=== PATIENT | male | born 1980 | race Hispanic/Latino ===

== ENCOUNTER 2017-12-25 17:05 | Emergency (ER) | payer OTHER ==
[2017-12-25 17:15] VITALS: RESP 16
[2017-12-25] MEDS ORDERED: Sodium Chloride 0.9% 1,000 ML IV STA (17:33)
--- NOTE | 2017-12-25 17:38 | ED PDOC ---
HPI: Male Pain Time Seen by Provider: 12/25/17 17:19 Chief Complaint (Nursing): Male Genitourinary Chief Complaint (Provider): Bloody urine History Per: Patient History/Exam Limitations: no limitations Onset/Duration Of Symptoms: Days (1) Current Symptoms Are (Timing): Still Present Additional Complaint(s): Pt. with bloody urine since last night with flank R pain and suprapubic pain. Pt. has had freq of urination for 8 months. Seen by pcp and no other tx at this time for it. No numbness, tingles, other abd pain, weakness, fever, diarrhea, headaches, nausea, vomit. Has von willebrand dz and up to age of 16 was getting bloody urine and had a lot of testing done for it. Pt. was not put on meds or any further tx. States no bleedings since then. Past Medical History Reviewed: Nursing Documentation, Vital Signs Vital Signs: Last Vital Signs Temp 97.6 F 12/25/17 17:13 Pulse 93 H 12/25/17 17:13 Resp 16 12/25/17 17:13 BP 119/80 12/25/17 17:13 Pulse Ox 99 12/25/17 17:13 - Medical History PMH: Kidney Stones Other PMH: von willebrand dz - Surgical History Surgical History: No Surg Hx - Family History Family History: States: Unknown Family Hx - Social History Current smoker - smoking cessation education provided: No Alcohol: None Drugs: Denies - Immunization History Hx Tetanus Toxoid Vaccination: No Hx Influenza Vaccination: No Hx Pneumococcal Vaccination: No - Home Medications Home Medications: Ambulatory Orders Medication Instructions Recorded Ciprofloxacin HCl [Cipro] 500 mg PO BID 5 Days tab 12/25/17 Tamsulosin [Flomax] 0.4 mg PO DAILY PRN #6 cap 12/25/17 - Allergies Allergies/Adverse Reactions: Allergies Allergy/AdvReac Type Severity Reaction Status Date / Time No Known Allergies Allergy Verified 12/25/17 17:13 Review of Systems ROS Statement: Except As Marked, All Systems Reviewed And Found Negative Gastrointestinal: Positive for: Abdominal Pain (suprapubic) Genitourinary Male: Positive for: Frequency, Hematuria Physical Exam - Reviewed Nursing Documentation Reviewed: Yes Vital Signs Reviewed: Yes - Physical Exam Appears: Positive for: Non-toxic, No Acute Distress Head Exam: Positive for: ATRAUMATIC, NORMAL INSPECTION, NORMOCEPHALIC Skin: Positive for: Normal Color, Warm, DRY Eye Exam: Positive for: EOMI, Normal appearance, PERRL ENT: Positive for: Normal ENT Inspection Neck: Positive for: Normal, Painless ROM Cardiovascular/Chest: Positive for: Regular Rate, Rhythm Respiratory: Positive for: CNT, Normal Breath Sounds Gastrointestinal/Abdominal: Positive for: Bowel Sounds, Soft, Tenderness ( suprapubic) Back: Positive for: R CVA Tenderness. Negative for: L CVA Tenderness Extremity: Positive for: Normal ROM. Negative for: Tenderness Neurologic/Psych: Positive for: Alert, Oriented - Laboratory Results Result Diagrams: 12/25/17 17:40 12/25/17 17:40 Interpretation Of Abn Labs: no acute Urine dip results: Positive for: Blood - ECG O2 Sat by Pulse Oximetry: 99 Pulse Ox Interpretation: Normal - CT Scan/US ct Other Rad Studies (CT/US): Read By Radiologist Other Rad Interpretation: 3mm R UVJ stone - Progress ED Course And Treament: 1837: Stable. AAOx3. Pain free. Tolerated PO. Did not want meds in the Er. Fu with urology. Per Dr. Garcia, pt. to get cipro 500mg po bid for 5 days. Fu with him in 3 days. Disposition - Clinical Impression Clinical Impression: Urolithiasis - Patient ED Disposition Is Patient to be Admitted: No Counseled Patient/Family Regarding: Studies Performed, Diagnosis, Need For Followup, Rx Given - Disposition Referrals: formerly [facility] [Outside] - 12/26/17 Goyo Garcia MD [Medical Doctor] - 12/26/17 Disposition: Routine/Home Disposition Time: 18:38 Condition: STABLE Additional Instructions: Return if not better in 3 days. Prescriptions: Ciprofloxacin HCl [Cipro] 500 mg PO BID 5 Days tab Tamsulosin [Flomax] 0.4 mg PO DAILY PRN #6 cap PRN Reason: Pain Instructions: Kidney Stones in Adults Forms: [facility] ([place]), [facility] ED School/Work Excuse
[2017-12-25 17:48] LABS: BASO # 0.1 K/uL (0.0-0.2); BASO % 1.3 % (0.0-2.0); EOS # 0.2 K/uL (0.0-0.7); EOS % 3.8 % (0.0-4.0); HEMOGLOBIN 15.5 g/dL (12.0-18.0); LYMPH # 2.1 K/uL (1.0-4.3); LYMPH % 35.9 % (20.0-40.0); MEAN CELL VOLUME 92.7 fl (80.0-94.0); MEAN CORPUSCULAR HEMOGLOBIN 31.7 pg (27.0-31.0); MEAN CORPUSCULAR HGB CONC 34.2 g/dL (33.0-37.0); MEAN PLATELET VOLUME 7.7 fl (7.2-11.7); MONO # 0.5 K/uL (0.0-0.8); NEUT # 2.9 K/uL (1.8-7.0); NRBC % 0.1 % (0.0-0.0); RBC 4.87 Mil/uL (4.40-5.90); RED CELL DISTRIBUTION WIDTH 12.8 % (11.5-14.5); WHITE BLOOD COUNT 5.8 K/uL (4.8-10.8)
[2017-12-25 17:57] LABS: PARTIAL THROMBOPLASTIN TIME 35.8 Seconds (25.6-37.1); PROTHROMBIN TIME 10.9 Seconds (9.8-13.1)
[2017-12-25 18:11] LABS: ALB/GLOB RATIO 1.5 (1.0-2.1); ALBUMIN 4.4 g/dL (3.5-5.0); ALT/SGPT 27 U/L (21-72); AST/SGOT 26 U/L (17-59); BLOOD UREA NITROGEN 15 mg/dl (9-20); GFR AFRICAN-AMERICAN > 60; GFR NON-AFRICAN AMERICAN > 60
[2017-12-25 18:20] LABS: URINE BILIRUBIN NEGATIVE (NEGATIVE); URINE BLOOD MODERATE (NEGATIVE); URINE CLARITY CLOUDY (Clear); URINE COLOR AMBER (YELLOW); URINE GLUCOSE (UA) NEG (Normal); URINE LEUKOCYTE ESTERASE NEG Leu/uL (Negative); URINE PROTEIN NEGATIVE (NEGATIVE); URINE UROBILINOGEN 0.2-1.0 mg/dL (0.2-1.0)
--- NOTE | 2017-12-25 18:34 | CT ---
PROCEDURE: CT Abdomen and Pelvis without Oral or IV contrast. HISTORY: R/O stone COMPARISON: None available. TECHNIQUE: Contiguous axial images of the abdomen and pelvis. No oral or IV contrast administered. Coronal and Sagittal reformats generated and reviewed. Radiation dose: Total exam DLP = 485.43 mGy-cm. This CT exam was performed using one or more of the following dose reduction techniques: Automated exposure control, adjustment of the mA and/or kV according to patient size, and/or use of iterative reconstruction technique. FINDINGS: There is limited evaluation of the solid organs without the administration of IV contrast. LOWER THORAX: No visible consolidation, pleural effusion, or pneumothorax. LIVER: Unremarkable unenhanced appearance. GALLBLADDER AND BILE DUCTS: Unremarkable unenhanced appearance. PANCREAS: Unremarkable unenhanced appearance. SPLEEN: Unremarkable unenhanced appearance. ADRENALS: Unremarkable unenhanced appearance. KIDNEYS AND URETERS: Sqgx-[id number]-right nonobstructing bilateral renal calculi measuring up to approximately 7 mm on the left and 5 mm on the right. No hydronephrosis or obstructing renal calculus. BLADDER: 3 mm calculus noted at the right UVJ/proximal urinary bladder consistent with calculus. REPRODUCTIVE: The prostate gland measures approximately 3.4 x 4.8 cm. APPENDIX: The appendix appears within normal limits of caliber. No secondary signs of acute appendicitis. BOWEL: The stomach is nondistended. Lack of oral contrast limits evaluation for bowel pathology. The bowel loops appear within normal limits of caliber without evidence of intestinal obstruction. PERITONEUM: No significant free fluid. No definite free air. LYMPH NODES: No bulky lymphadenopathy identified. VASCULATURE: No aortic aneurysm. BONES: No acute osseous abnormality is detected. OTHER FINDINGS: None. IMPRESSION: 3 mm calculus noted at the right UVJ/proximal urinary bladder consistent with calculus. Vpgn-[id number]-jwwv-right nonobstructing bilateral renal calculi measuring up to approximately 7 mm on the left and 5 mm on the right.
[2017-12-25 19:12] VITALS: BP 115/80; PULSE 78; TEMP 97.7; O2SAT 100
== END 2017-12-25 19:00 | disposition home or self-care (01) ==
LOC: H.ER 17:05
DX: N20.9 Urinary calculus, unspecified (principal)
CPT/HCPCS: 74176; 80053; 81003; 85025; 85610; 85730; 96360; 99284; J7040